=== PATIENT | female | born 2000 | race African-American/Black ===

== ENCOUNTER 2020-09-03 14:09 | Emergency (ER) | payer SELFPAY ==
[~2020-09-03] VITALS: Ht 165.1 cm; Wt 49.1 kg
[2020-09-03 17:10] VITALS: BP 115/79
--- NOTE | 2020-09-03 18:07 | ED.ADGEN ---
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 Patient denies any trauma or injury to her foot. She denies any swelling, erythema, warmth, or tenderness. Patient states that she walked more than she is used to when she was at her new job yesterday. She denies any numbness, tingling, or weakness of her feet. Patient currently rates her pain 8 out of 10 on the pain scale, states that the pain is worse with weightbearing. She denies any alleviating factors. Review of Systems: Review of Systems: Complete ROS is negative unless otherwise noted in HPI. Physical Exam: PE: See Above Constitutional: Well developed, well nourished, no acute distress, non-toxic ap pearance. [] HENT: Normocephalic, atraumatic, bilateral external ears normal, nose normal. [] Eyes: PERRLA, EOMI, conjunctiva normal, no discharge. [] Neck: Normal range of motion, no stridor. [] Cardiovascular:Heart rate regular rhythm Lungs & Thorax: Respirations even and unlabored, no retractions, no respiratory distress Skin: Warm, dry, no erythema, no rash. [] Extremities: Left foot: Appearance of flat feet bilaterally, no erythema, no bruising, no obvious deformity, no bony tenderness, no crepitus, no cyanosis, ROM intact, no edema. [] Neurologic: Alert and oriented X 3, no focal deficits noted. [] Psychologic: Affect normal, judgement normal, mood normal. [] Current Patient Data: Vital Signs: Vital Signs Date Time Temp Pulse Resp B/P (MAP) Pulse Ox O2 Delivery O2 Flow Rate FiO2 09/03/20 17:10 98.0 71 14 115/79 (91) 100 Room Air 98.0 EKG: EKG: [] Heart Score: Risk Factors: Risk Factors: DM, Current or recent (<one month) smoker, HTN, HLP, family history of CAD, obesity. Risk Scores: Score 0 - 3: 2.5% MACE over next 6 weeks - Discharge Home Score 4 - 6: 20.3% MACE over next 6 weeks - Admit for Clinical Observation Score 7 - 10: 72.7% MACE over next 6 weeks - Early Invasive Strategies Radiology/Procedures: Radiology/Procedures: [] Course & Med Decision Making: Course & Med Decision Making Pertinent Labs and Imaging studies reviewed. (See chart for details) 20-year-old female presented to the emergency department with complaints of atraumatic left foot pain The patient had flat feet bilaterally. I provided extensive amount of education to the patient about the need for shoes with arch support. I recommended that she follows up with her primary care doctor for further evaluation and treatment. I encouraged the patient to have her feeds evaluated for good shoes. The recommended the patient go to the [employer] or the good feet store for shoe fitting. Encourage her to take Tylenol or ibuprofen as needed for pain. Also instructed to her roll feet over a frozen water bottle to help reduce comfort. Patient verbalized an understanding of home care, medications, follow-up, and return to ED instructions and was in agreement with the plan of care. [] Dragon Disclaimer: Dragon Disclaimer: This electronic medical record was generated, in whole or in part, using a voice recognition dictation system. Departure Departure Impression: Primary Impression: Flat feet, bilateral Additional Impression: Arch pain of left foot Disposition: 01 DC HOME SELF CARE/HOMELESS Condition: STABLE Referrals: NO PCP (PCP) Patient Instructions: Flat Feet Additional Instructions: Tylenol or ibuprofen as needed for pain. Recommend application of ice, elevation, and rest of affected extremity. I recommend that you go to a specialty shoe store that can recommend shoes for your feet. Follow-up with your primary care doctor for further evaluation, return to the ER symptoms worsen. [facility] [address] [place] [address] [facility] [address] [place] [address] [facility] [address] [facility] [place] [address] [facility] [address] [place] [address] [facility] [address] [place] [address] [facility] [address] [place] [address] [facility] [address] [place] [address] [facility] [address] [place] [address] [facility] [address] [place] [address] [facility] [address] [place] [address] Problem Qualifiers MEGHA MATHUR APRN Sep 03, 2020 18:07
== END 2020-09-03 18:18 | disposition home or self-care (01) ==
LOC: ER 14:09
DX: M21.42 Flat foot [pes planus] (acquired), left foot (principal); M21.41 Flat foot [pes planus] (acquired), right foot; M79.672 Pain in left foot
CPT/HCPCS: 99282; 99283